=== PATIENT | female | born 1965 | race Caucasian/White ===

== ENCOUNTER 2018-05-27 17:28 | Emergency (ER) | payer OTHER ==
[~2018-05-27] VITALS: Ht 172.7 cm; Wt 71.8 kg
[2018-05-27] MEDS ORDERED: ESTR125TA PO (17:33)
[2018-05-27] MEDS ORDERED: ASPIRIN 81 MG CHEW TABLET PO ONE (18:00)
[2018-05-27 18:08] LABS: BASO # 0.1 10^3/uL (0.0-0.2); BASO % 0.9 % (0.0-1.0); EOS # 0.1 10^3/uL (0.0-0.50); EOS % 2.5 % (0.0-3.0); HEMATOCRIT 35.7 % (36.0-47.0); HEMOGLOBIN 12.1 g/dl (12.0-15.5); LYMPH # 2.5 10^3/uL (1.5-4.5); LYMPH % 43.3 % (24.0-44.0); MEAN CORPUSCULAR HEMOGLOBIN 30.9 pg (27.0-33.0); MEAN CORPUSCULAR HGB CONC 33.9 g/dl (32.0-36.5); MEAN CORPUSCULAR VOLUME 91.3 fl (80.0-96.0); MONO # 0.4 10^3/uL (0.0-0.8); MONO % 6.4 % (0.0-5.0); NEUTROPHILS # 2.7 10^3/uL (1.8-7.7); NEUTROPHILS % 46.7 % (36.0-66.0); PLATELET COUNT, AUTOMATED 204 10^3/uL (150-450); RED BLOOD COUNT 3.91 10^6/uL (4.00-5.40); WHITE BLOOD COUNT 5.7 10^3/uL (4.0-10.0)
--- NOTE | 2018-05-27 18:32 | REP ---
CHEST: Single view. There is no evidence of acute infiltrate. No pleural effusion is seen. The heart is normal in size. The mediastinal silhouette is unremarkable. The visualized osseous structures are intact. IMPRESSION: No acute pulmonary disease. Electronically Signed by Rancho Aviles MD 05/27/2018 07:47 P
[2018-05-27 18:41] LABS: ALBUMIN 3.6 GM/DL (3.2-5.2); ALT/SGPT 32 U/L (12-78); BILIRUBIN,DIRECT < 0.1 MG/DL (0.0-0.2); BILIRUBIN,TOTAL 0.2 MG/DL (0.2-1.0); BLOOD UREA NITROGEN 23 MG/DL (7-18); CALCIUM LEVEL 8.4 MG/DL (8.5-10.1); CARBON DIOXIDE LEVEL 28 MEQ/L (21-32); CHLORIDE LEVEL 107 MEQ/L (98-107); CPK CREATINE PHOSPHOKINASE 166 U/L (26-192); CREATININE FOR GFR 1.04 MG/DL (0.55-1.30); GLOMERULAR FILTRATION RATE 59.7 (>51); GLUCOSE, FASTING 98 MG/DL (70-100); LIPASE 143 U/L (73-393); MB/CK RELATIVE INDEX 2.29 (< OR =4); POTASSIUM SERUM 4.1 MEQ/L (3.5-5.1); SODIUM LEVEL 141 MEQ/L (136-145); TOTAL PROTEIN 6.5 GM/DL (6.4-8.2); TROPONIN I < 0.02 NG/ML (< 0.10)
[2018-05-27] MEDS ORDERED: ISOVUE-370 76% 100ML VIAL (Q9967) As Ordered ONE (18:51)
--- NOTE | 2018-05-27 20:17 | REPVR ---
EXAM: CT Angiography Chest With Contrast EXAM DATE/TIME: 05/27/2018 6:56 PM CLINICAL HISTORY: 52 years old, female; Pain; Chest pain; Additional info: Chest pain R/O pe TECHNIQUE: Axial computed tomographic angiography images of the chest with intravenous contrast using CT angiography protocol. All CT scans at this facility use at least one of these dose optimization techniques: automated exposure control; mA and/or kV adjustment per patient size (includes targeted exams where dose is matched to clinical indication); or iterative reconstruction. Coronal and sagittal reformatted images were created and reviewed. MIP reconstructed images were created and reviewed. CONTRAST: Contrast Material: 75 ml of ISOVUE 370; Contrast Route: IV COMPARISON: CR PORTABLE CHEST X-RAY 05/27/2018 6:07 PM FINDINGS: Pulmonary arteries: Normal. No pulmonary emboli. Aorta: Normal. No aortic aneurysm. No aortic dissection. Lungs: Normal. No consolidation. No masses. Pleural space: Normal. No pneumothorax. No pleural effusion. Heart: Normal. No cardiomegaly. No pericardial effusion. Lymph nodes: Unremarkable. No enlarged lymph nodes. Bones/joints: Unremarkable. No acute fracture. Soft tissues: Unremarkable. IMPRESSION: No acute findings. Electronically signed by: Monkia Rubio On 05/27/2018 20:17:21 PM
[2018-05-27 21:00] VITALS: BP 117/68
--- NOTE | 2018-05-27 21:09 | ECGEPIP ---
Stationary ECG Study [facility] - ED Test Date: 2018-05-27 Pat Name: EILEEN SALAZAR Department: Room: - Gender: F [employer]: LANDON : 1965 Requested By: Derek Bates Order Number: [id number] Reading MD: Doris Nunes Measurements Intervals [place] Rate: 35 P: 44 ID: [id number] QRS: 54 QRSD: 90 T: 40 QT: 463 QTc: 353 Interpretive Statements SINUS BRADYCARDIA WITH SINUS ARRHYTHMIA DELAYED R PROGRESSION NO PRIOR FOR COMPARISON Electronically Signed On 05-27-2018 21:09:11 EST by Doris Nunes
== END 2018-05-27 21:16 | disposition home or self-care (01) ==
LOC: M ED 17:28
DX: R00.1 Bradycardia, unspecified (principal); R07.89 Other chest pain; Z79.890 Hormone replacement therapy
CPT/HCPCS: 36415; 71045; 71275; 80048; 80076; 82550; 82553; 83690; 84443; 84484; 85025; 85379; 93005; 93041; 94760; 99285; Q9967

== ENCOUNTER → 2020-11-02 | Outpatient (CLI) | payer SELFPAY ==
[~2020-11-02] MED LIST: ESTR125TA PO
== END ==
LOC: M LABSMTC 10:05
PROVIDERS: ATTEND Pediatrics
DX: Z20.822 Contact with and (suspected) exposure to COVID-19 (principal)

== ENCOUNTER 2022-10-29 19:30 | Emergency (ER) | payer OTHER, SELFPAY ==
[~2022-10-29] VITALS: Ht 172.7 cm; Wt 72.4 kg
[2022-10-29] MEDS ORDERED: FAMOTIDINE 20MG/2ML VIAL IVP ONE (20:00)
[2022-10-29] MEDS ORDERED: methylPREDNISolone 125MG 2ML VIAL IV ONE (20:00)
[2022-10-29] MEDS ORDERED: NS 1,000 ML IV ONE (20:00)
[2022-10-29] MEDS ORDERED: PRED20TA PO (21:42)
[2022-10-29] MEDS ORDERED: EPIP0.3I2 IM (21:42)
[2022-10-29 22:16] VITALS: BP 122/72; TEMP 98.1; O2SAT 99
== END 2022-10-29 22:30 | disposition home or self-care (01) ==
LOC: M ED 19:30
DX: T63.441A Toxic effect of venom of bees, accidental (unintentional), initial encounter (principal); S60.561A Insect bite (nonvenomous) of right hand, initial encounter; W57.XXXA Bitten or stung by nonvenomous insect and other nonvenomous arthropods, initial encounter; Y92.89 Other specified places as the place of occurrence of the external cause; Y93.89 Activity, other specified; Y99.8 Other external cause status
CPT/HCPCS: 96374; 96375; 99284; J2930; S0028

== ENCOUNTER 2023-09-20 12:31 | Emergency (ER) | payer OTHER ==
[~2023-09-20] VITALS: Ht 172.7 cm; Wt 68.1 kg
[~2023-09-20 12:31] MED LIST changes: +EPIP0.3I2 IM; +PRED20TA PO
[2023-09-20 13:57] VITALS: BP 125/68; TEMP 96.8; O2SAT 100
== END 2023-09-20 13:59 | disposition home or self-care (01) ==
LOC: M ED 12:31
DX: S92.515A Nondisplaced fracture of proximal phalanx of left lesser toe(s), initial encounter for closed fracture (principal); Y92.9 Unspecified place or not applicable; Y93.9 Activity, unspecified; Y99.9 Unspecified external cause status; Z91.030 Bee allergy status; Z79.52 Long term (current) use of systemic steroids; Z79.899 Other long term (current) drug therapy